=== PATIENT | male | born 2000 | race Hispanic/Latino ===

== ENCOUNTER 2023-09-28 05:56 | Emergency (ER) | payer OTHER ==
[~2023-09-28] VITALS: Ht 167.6 cm; Wt 90.7 kg
[2023-09-28 06:39] VITALS: BP 129/76; PULSE 75; RESP 16; O2SAT 100
== END 2023-09-28 06:40 | disposition home or self-care (01) ==
LOC: EDH 05:56
DX: F10.129 Alcohol abuse with intoxication, unspecified (principal); I10 Essential (primary) hypertension; F17.200 Nicotine dependence, unspecified, uncomplicated; V89.2XXA Person injured in unspecified motor-vehicle accident, traffic, initial encounter; Y93.89 Activity, other specified; Y92.89 Other specified places as the place of occurrence of the external cause; Y99.8 Other external cause status